=== PATIENT | male | born 1955 | race Caucasian/White ===

== ENCOUNTER 2019-07-16 13:51 | Outpatient (CLI) | payer OTHER ==
[~2019-07-16 13:51] MED LIST: BENAZEPRIL HCL5 MG; CELEBREX100 MG PO; CLEOCIN HCL300 MG PO; MIRALAX17 GM PO; MOTRIN800 MG PO; NEURONTIN300 MG PO; PANTOPRAZOLE SO40 M1; PERCOCET 5-3251 EACH PO; SKELAXIN800 MG PO; ZETIA10 MG; ZOFRAN ODT4 MG PO
== END 2019-07-16 14:10 | disposition home or self-care (01) ==
LOC: RAD 13:51
DX: M99.01 Segmental and somatic dysfunction of cervical region (principal); M99.03 Segmental and somatic dysfunction of lumbar region

== ENCOUNTER 2019-08-14 18:59 | Emergency (ER) | payer OTHER ==
[~2019-08-14] VITALS: Ht 172.7 cm; Wt 63.5 kg
== END 2019-08-14 22:13 | disposition home or self-care (01) ==
LOC: ER 18:59
DX: K57.90 Diverticulosis of intestine, part unspecified, without perforation or abscess without bleeding (principal); R10.84 Generalized abdominal pain

== ENCOUNTER 2025-10-07 17:15 | Emergency (ER) | payer OTHER ==
[~2025-10-07] VITALS: Ht 172.7 cm; Wt 87.5 kg
[2025-10-07] MEDS ORDERED: ACETAMINOPHEN 500 MG GEL..CAP PO ONE (17:44)
[2025-10-07] MEDS ORDERED: KETOROLAC TROMETHAMINE 60 MG VIAL IM STA (18:00)
[2025-10-07] MEDS ORDERED: DEXAMETHASONE SODIUM PHOSPHATE 4 MG/ML VIAL IM STA (18:01)
[2025-10-07] MEDS ORDERED: DEXAMETHASONE SODIUM PHOSPHATE 4 MG/ML VIAL ONE (18:16)
[2025-10-07] MEDS ORDERED: KETOROLAC TROMETHAMINE 60 MG VIAL IM ONE (18:16)
[2025-10-07] MEDS ORDERED: SODIUM CL 0.9% 25 ML IV.SOLN. IV STA (18:17)
[2025-10-07] MEDS ORDERED: CEFAZOLIN SODIUM 1,000 MG VIAL IV STA (18:31)
[2025-10-07] MEDS ORDERED: CEFAZOLIN SODIUM 1,000 MG VIAL ONE (18:49)
[2025-10-07 19:01] LABS: BASO % 0.2 % (0.1-1.2); EOS # 0.03 (0.04-0.54); EOS % 0.2 % (0.7-7.0); LYMPH # 0.50 (1.18-3.74); LYMPH % 3.8 % (19.3-53.1); MEAN PLATELET VOLUME 9.90 fl (9.4-12.4); MONO # 0.74 (0.24-0.82); MONO % 5.6 % (4.7-12.5); NEUT # 11.79 (1.56-6.13); NEUT % 89.8 % (34.0-71.1); RED CELL DISTRIBUTION WIDTH 13.0 % (11.6-14.4)
[2025-10-07 19:20] LABS: BUN CREA RATIO 17.0 (7.0-25.0); CREATININE SERUM 1.16 mg/dL (0.70-1.30); GFR 61.89; GLUCOSE FASTING 174.0 mg/dL (65-100); OSMOLALITY SERUM 284.0 MOSM/KG (275-295)
[2025-10-07 20:31] LABS: COVID-19 AG NEGATIVE (NEGATIVE)
[2025-10-07 20:55] LABS: URINE APPEARANCE Clear; URINE BILIRRUBIN Negative (NEGATIVE); URINE BLOOD Trace; URINE COLOR Dark Yellow; URINE GLUCOSE Negative (NEGATIVE); URINE KETONE Trace (NEGATIVE); URINE LEUKOCYTE Trace; URINE NITRATE Negative; URINE PROTEIN 30 (NEGATIVE); URINE UROBILINOGEN 1.0 E.U./dl
[2025-10-07 20:59] LABS: URINE BACTERIA 9.5 uL (0.0-1933); URINE EPITHELIAL CELLS 8.9 uL (0.0-38.8); URINE RBC 100.6 uL (0.0-20.8); URINE WBC 4.6 uL (0.0-23.2)
[2025-10-07 21:04] LABS: URINE CAST 1.17 uL (0.0-1.40)
== END 2025-10-07 23:01 | disposition home or self-care (01) ==
LOC: ER 17:15
PROVIDERS: General Practice
DX: J06.9 Acute upper respiratory infection, unspecified (principal); J20.8 Acute bronchitis due to other specified organisms; R50.9 Fever, unspecified; Z20.822 Contact with and (suspected) exposure to COVID-19; I10 Essential (primary) hypertension; R42 Dizziness and giddiness